=== PATIENT | female | born 1975 | race Caucasian/White ===

== ENCOUNTER 2021-09-25 07:26 | Inpatient (IN) | payer MEDICAID ==
[~2021-09-25] VITALS: Ht 157.5 cm; Wt 88.0 kg
[2021-09-25] MEDS ORDERED: SODIUM CHLORIDE 0.9% 1,000 ML IV ONE (07:45)
[2021-09-25] MEDS ORDERED: KETOROLAC 30MG/ML VIAL IV ONE (08:00)
[2021-09-25 08:55] LABS: CLARITY URINE CLEAR (CLEAR); COLOR URINE YELLOW (YELLOW); KETONES URINE NEGATIVE (NEGATIVE); LEUKOCYTE ESTERASE URINE NEGATIVE (NEGATIVE); NITRITE URINE NEGATIVE (NEGATIVE); OCCULT BLOOD URINE NEGATIVE (NEGATIVE); PROTEIN URINE 1+ (NEGATIVE); SPECIFIC GRAVITY URINE 1.005 (1.005-1.030); UROBILINOGEN URINE 0.2 E.U./dL (0.2-1.0)
[2021-09-25 08:57] LABS: CHLORIDE 105 mEq/L (98-107)
[2021-09-25 09:00] LABS: BASOPHILS % 0.4 % (0.0-2.0); EOSINOPHILS % 1.2 % (0.0-5.0); HEMATOCRIT. 37.6 % (36.0-48.0); LYMPHOCYTES % 32.8 % (20.0-50.0); MEAN CORPUSCULAR HEMOGLOBIN 28.2 pg (28.0-32.0); MEAN CORPUSCULAR VOLUME 81.3 fL (81.0-99.0); MEAN PLATELET VOLUME 9.1 fl (7.4-10.4); MONOCYTES % 5.8 % (2.0-8.0); NEUTROPHILS % 59.8 % (40.0-76.0); PLATELET 253 x1000/uL (130-400); RED BLOOD CELL COUNT 4.63 mill/uL (4.2-5.4); RED CELL DISTRIBUTION WIDTH 15.6 % (11.6-14.6)
[2021-09-25 09:10] LABS: HCG SCREEN NEGATIVE
[2021-09-25 09:11] LABS: PROTHROMBIN TIME 10.7 sec (9.6-11.0)
[2021-09-25] MEDS ORDERED: CEFTRIAXONE 1 G PREMIX 50 ML IV ONE (10:45)
[2021-09-25] MEDS ORDERED: PIPERACILLIN/TAZ 3.375G PREMIX 50 ML IV ONE (12:15)
[2021-09-25] MEDS ORDERED: ONDANSETRON HCL 4MG/2ML INJ IV PRN (13:30)
[2021-09-25] MEDS ORDERED: CLONIDINE 0.1MG TABLET PO PRN (13:30)
[2021-09-25] MEDS ORDERED: DOCUSATE SODIUM 100MG CAPSULE PO PRN (13:30)
[2021-09-25] MEDS ORDERED: ACETAMINOPHEN 325MG TABLET PO PRN (13:30)
[2021-09-25] MEDS ORDERED: HYDROCODONE/ACETAMINOPHEN 5/325MG TABLET PO PRN (13:30)
[2021-09-25] MEDS ORDERED: NALOXONE HCL 0.4MG/ML VIAL IV PRN (13:45)
[2021-09-25] MEDS: SODIUM CHLORIDE 0.45% 1,000 ML IV SCH (15:53)
[2021-09-25] MEDS: ENOXAPARIN 40MG/0.4ML SYR SUBCUT SCH (15:57)
[2021-09-25 20:20] VITALS: BP 123/61
[2021-09-25] MEDS ORDERED: KETOROLAC 30MG/ML VIAL IV NR (20:45)
[2021-09-25 22:00] VITALS: BP 122/61
[2021-09-25] MEDS ORDERED: PIPERACILLIN/TAZOBACTAM 3.375 G in DEXTROSE 5% WATER 50 ML IV SCH (22:00)
[2021-09-25] MEDS: PIPERACILLIN/TAZOBACTAM 3.375 G in DEXTROSE 5% WATER 50 ML IV SCH (23:35)
[2021-09-26] VITALS (22 sets, daily range): BP systolic 109–158; BP diastolic 61–99
[2021-09-26] MEDS: HYDROMORPHONE HCL/PF 2MG/ML CPJ IV PRN ×2 (00:10→12:52)
[2021-09-26] MEDS: PIPERACILLIN/TAZOBACTAM 3.375 G in DEXTROSE 5% WATER 50 ML IV SCH ×3 (06:51→21:11)
[2021-09-26] MEDS: SODIUM CHLORIDE 0.45% 1,000 ML IV SCH ×2 (06:51→21:11)
[2021-09-26 08:01] LABS: CHLORIDE 105 mEq/L (98-107)
[2021-09-26 08:02] LABS: BASOPHILS % 0.3 % (0.0-2.0); EOSINOPHILS % 2.3 % (0.0-5.0); HEMATOCRIT. 36.1 % (36.0-48.0); HEMOGLOBIN. 11.9 g/dL (12.0-16.0); MEAN CORPUSCULAR HEMOGLOBIN 27.3 pg (28.0-32.0); MEAN PLATELET VOLUME 8.8 fl (7.4-10.4); MONOCYTES % 6.2 % (2.0-8.0); NEUTROPHILS % 63.2 % (40.0-76.0); PLATELET 216 x1000/uL (130-400); RED BLOOD CELL COUNT 4.35 mill/uL (4.2-5.4); RED CELL DISTRIBUTION WIDTH 15.6 % (11.6-14.6)
[2021-09-26] MEDS ORDERED: SODIUM BICARBONATE 4% (2.4MEQ) 5ML VIAL IV ONE (12:26)
[2021-09-26] MEDS ORDERED: LIDOCAINE HCL 1% 30ML VIAL (10MG/ML) ONE (12:26)
[2021-09-26] MEDS ORDERED: FENTANYL CITRATE/PF 50MCG/ML 2ML VIAL ONE (12:26)
[2021-09-26] MEDS: ENOXAPARIN 40MG/0.4ML SYR SUBCUT SCH (13:24)
[2021-09-26] MEDS ORDERED: FENTANYL CITRATE/PF 50MCG/ML 2ML VIAL IV NR (15:15)
[2021-09-26 19:41] LABS: HEMATOCRIT 35.6 % (36.0-48.0); HEMOGLOBIN 11.7 g/dL (12.0-16.0)
[2021-09-27] VITALS: BP 119/82
[2021-09-27 04:00] VITALS: BP 123/83
[2021-09-27] MEDS: PIPERACILLIN/TAZOBACTAM 3.375 G in DEXTROSE 5% WATER 50 ML IV SCH (05:58)
[2021-09-27] MEDS: SODIUM CHLORIDE 0.45% 1,000 ML IV SCH (06:01)
[2021-09-27 10:33] VITALS: BP 114/65
== END 2021-09-27 11:05 | disposition home or self-care (01) | DRG 463 ==
LOC: ER 07:26 → 6EST 12:58 → EDBEDREQ 13:01 → EDBEDREQTM 13:01 → ENRESERV 19:25
PROVIDERS: ADMIT Hospitalist; ATTEND Hospitalist
PROC: 0TJ53ZZ Inspection of Kidney, Percutaneous Approach (ICD-10-PCS; principal; 2021-09-26)
DX: N12 Tubulo-interstitial nephritis, not specified as acute or chronic (principal); D25.9 Leiomyoma of uterus, unspecified; N20.0 Calculus of kidney; Z20.822 Contact with and (suspected) exposure to COVID-19; Z98.891 History of uterine scar from previous surgery; Z87.440 Personal history of urinary (tract) infections; Z82.49 Family history of ischemic heart disease and other diseases of the circulatory system; Z90.5 Acquired absence of kidney
CPT/HCPCS: 36415; 71045; 74176; 77012; 80053; 81003; 83605; 84703; 85014; 85018; 85025; 87426; 93970; 99152; 99153; 99291; J0696; J1170; J1650; J1885; J2405; J2543; J3010; J3490; J7030; J7060; G0500